=== PATIENT | female | born 1975 | race Caucasian/White ===

== ENCOUNTER 2018-01-20 23:25 | Emergency (ER) | payer SELFPAY, MEDICAID ==
[2018-01-20] MEDS ORDERED: ALBUTEROL 0.5% (NEB) 2.5 MG/0.5 ML AMP INH (23:43)
[2018-01-21] MEDS: IPRATROPIUM (NEB) 0.5 MG/2.5 ML AMP INH (00:01)
[2018-01-21] MEDS: LEVALBUTEROL (NEB) 1.25 MG/0.5 ML AMP INH (00:01)
[2018-01-21] MEDS ORDERED: ONDANSETRON 4 MG INJ (00:13)
[2018-01-21] MEDS: SOD CHLORIDE 0.9% 1,000 ML IV (00:14)
[2018-01-21] MEDS: METHYLPREDNISOLONE 125 MG INJ IV (00:14)
[2018-01-21] MEDS: MAGNESIUM SULFATE 2 GM/50 ML 50 ML IVPB (00:14)
[2018-01-21] MEDS: ONDANSETRON 4 MG INJ IV ×2 (00:18→00:50)
== END 2018-01-21 02:13 | disposition home or self-care (01) ==
LOC: FTE 23:25 → E/R 01-21 02:13
DX: J45.901 Unspecified asthma with (acute) exacerbation (principal)
CPT/HCPCS: 71045; 94644; 96374; 96375; 99284-25

== ENCOUNTER 2018-07-20 00:08 | Emergency (ER) | payer MEDICAID ==
[2018-07-20] MEDS ORDERED: ALBUTEROL 0.5% (NEB) 2.5 MG/0.5 ML AMP (00:33)
[2018-07-20] MEDS ORDERED: IPRATROPIUM (NEB) 0.5 MG/2.5 ML AMP (00:33)
[2018-07-20] MEDS: ALBUTEROL 0.5% (NEB) 2.5 MG/0.5 ML AMP INH ×2 (00:35→01:26)
[2018-07-20] MEDS: IPRATROPIUM (NEB) 0.5 MG/2.5 ML AMP INH (00:36)
[2018-07-20] MEDS: METHYLPREDNISOLONE 125 MG INJ IV (00:39)
[2018-07-20 00:43] LABS: ADD MAN DIFF? NO
[2018-07-20 00:45] LABS: WHITE BLOOD COUNT 6.6 10^3/ul (4.8-10.8)
[2018-07-20 00:45] LABS: BASOPHIL # 0.1 10^3/ul (0.0-0.1); BASOPHILS % 0.9 % (0.0-2.0); EOSINOPHILS # 0.4 10^3/ul (0.0-0.5); EOSINOPHILS % 6.1 % (0.0-7.0); HEMATOCRIT 30.7 % (37.0-47.0); HEMOGLOBIN 9.1 g/dl (12.0-16.0); LYMPHOCYTES # 2.3 10^3/ul (0.8-2.9); LYMPHOCYTES % 35.1 % (15.0-51.0); MEAN CORPUSCULAR HEMOGLOBIN 19.7 pg (29.0-33.0); MEAN CORPUSCULAR HGB CONC 29.6 g/dl (32.0-37.0); MEAN CORPUSCULAR VOLUME 66.6 fl (82.0-101.0); MEAN PLATELET VOLUME 9.1 fl (7.4-10.4); MONOCYTE # 0.5 10^3/ul (0.3-0.9); NEUTROPHIL # 3.4 10^3/ul (1.6-7.5); NEUTROPHILS % 50.6 % (39.0-77.0); PLATELET COUNT 361 10^3/UL (140-415); RED BLOOD COUNT 4.61 10^6/ul (4.20-5.40)
[2018-07-20 01:03] LABS: ANION GAP 9 (5-13); BLOOD UREA NITROGEN 12 mg/dl (7-20); CALCIUM 9.2 mg/dl (8.4-10.2); CARBON DIOXIDE 22 mmol/L (21-31); CHLORIDE 106 mmol/L (97-110); CREATININE 0.65 mg/dl (0.44-1.00); Estimated GFR > 60 mL/min (>60); GLUCOSE 108 mg/dl (70-220); POTASSIUM 4.1 mmol/L (3.5-5.1); SODIUM 137 mmol/L (135-144)
== END 2018-07-20 03:25 | disposition home or self-care (01) ==
LOC: E/R 00:08
DX: J45.901 Unspecified asthma with (acute) exacerbation (principal)
CPT/HCPCS: 71045; 80048; 84703; 85025; 94644; 94645; 96374; 99285-25

== ENCOUNTER 2018-08-08 19:52 | Emergency (ER) | payer MEDICAID ==
[2018-08-08] MEDS ORDERED: METHYLPREDNISOLONE 125 MG INJ IM (22:00)
[2018-08-08] MEDS: IPRATROPIUM (NEB) 0.5 MG/2.5 ML AMP INH (22:06)
[2018-08-08] MEDS: ALBUTEROL 0.5% (NEB) 2.5 MG/0.5 ML AMP INH (22:07)
[2018-08-08 22:16] LABS: ADD MAN DIFF? NO
[2018-08-08] MEDS: METHYLPREDNISOLONE 125 MG INJ IV (22:18)
[2018-08-08 22:19] LABS: WHITE BLOOD COUNT 8.4 10^3/ul (4.8-10.8)
[2018-08-08 22:19] LABS: ABNORMAL IP MESSAGE 1; BASOPHIL # 0.1 10^3/ul (0.0-0.1); BASOPHILS % 0.6 % (0.0-2.0); EOSINOPHILS # 0.5 10^3/ul (0.0-0.5); EOSINOPHILS % 5.9 % (0.0-7.0); HEMATOCRIT 33.9 % (37.0-47.0); HEMOGLOBIN 9.7 g/dl (12.0-16.0); LYMPHOCYTES # 2.5 10^3/ul (0.8-2.9); LYMPHOCYTES % 30.2 % (15.0-51.0); MEAN CORPUSCULAR HEMOGLOBIN 19.4 pg (29.0-33.0); MEAN CORPUSCULAR HGB CONC 28.6 g/dl (32.0-37.0); MEAN CORPUSCULAR VOLUME 67.8 fl (82.0-101.0); MEAN PLATELET VOLUME 9.2 fl (7.4-10.4); MONOCYTE # 0.5 10^3/ul (0.3-0.9); MONOCYTES % 6.5 % (0.0-11.0); NEUTROPHIL # 4.7 10^3/ul (1.6-7.5); NEUTROPHILS % 56.3 % (39.0-77.0); PLATELET COUNT 350 10^3/UL (140-415)
[2018-08-08 22:22] LABS: POSITIVE DIFF @See below
[2018-08-08 22:38] LABS: ANION GAP 6 (5-13); BLOOD UREA NITROGEN 11 mg/dl (7-20); CALCIUM 8.9 mg/dl (8.4-10.2); CARBON DIOXIDE 22 mmol/L (21-31); CHLORIDE 108 mmol/L (97-110); CREATININE 0.72 mg/dl (0.44-1.00); Estimated GFR > 60 mL/min (>60); GLUCOSE 101 mg/dl (70-220); SODIUM 136 mmol/L (135-144)
[2018-08-09] MEDS: ALBUTEROL 0.5% (NEB) 2.5 MG/0.5 ML AMP INH (00:31)
== END 2018-08-09 02:30 | disposition home or self-care (01) ==
LOC: FTE 08-09 02:30
DX: R05 Cough (principal); R06.2 Wheezing
CPT/HCPCS: 36415; 80048; 81025; 85025; 94644; 94645; 96374; 99285-25

== ENCOUNTER 2018-10-07 04:39 | Emergency (ER) | payer SELFPAY, MEDICAID ==
[2018-10-07] MEDS: DEXAMETHASONE 10 MG/ML 1 ML INJ IM (05:03)
[2018-10-07] MEDS: IPRATROPIUM (NEB) 0.5 MG/2.5 ML AMP HHN (05:10)
[2018-10-07] MEDS: ALBUTEROL 0.083% (NEB) 2.5 MG/3 ML AMP HHN (05:10)
== END 2018-10-07 05:49 | disposition home or self-care (01) ==
LOC: FTE 04:39
DX: J06.9 Acute upper respiratory infection, unspecified (principal); R06.02 Shortness of breath
CPT/HCPCS: 94664; 96372; 99284-25

== ENCOUNTER 2018-11-11 21:57 | Emergency (ER) | payer SELFPAY ==
[2018-11-11] MEDS: DEXAMETHASONE 10 MG/ML 1 ML INJ IM (23:05)
[2018-11-11] MEDS: ALBUTEROL 0.083% (NEB) 2.5 MG/3 ML AMP HHN (23:07)
[2018-11-11] MEDS: IPRATROPIUM (NEB) 0.5 MG/2.5 ML AMP HHN (23:08)
== END 2018-11-12 00:19 | disposition home or self-care (01) ==
LOC: FTE 11-12 00:19
DX: J45.901 Unspecified asthma with (acute) exacerbation (principal)
CPT/HCPCS: 94664; 96372; 99284-25